=== PATIENT | female | born 1960 | race Caucasian/White ===

== ENCOUNTER → 2017-05-01 | Outpatient (CLI) | payer MEDICAID ==
[~2017-05-01] MED LIST: CIPRO 500MG TA500 MG PO; LEVOTHYROXINE0.05 MG PO; PHENERGAN25 M3 PO; PROPRANOLOL HCL20 MG PO; PYRIDIUM 200MG200 MG PO
[2017-05-01 10:17] LABS: BUN 16 mg/dL (7-18)
[2017-05-01 10:19] LABS: GFR (ESTIMATED) 74 ML/MIN (59-)
[2017-05-02 09:42] LABS: Iron 79 ug/dL (27-159); Iron Saturation 28 % (15-55); UIBC 202 ug/dL (131-425)
== END ==
LOC: LAB 08:39
PROVIDERS: Physician Assistant
DX: E03.9 Hypothyroidism, unspecified (principal); I10 Essential (primary) hypertension; E61.1 Iron deficiency; E78.2 Mixed hyperlipidemia

== ENCOUNTER → 2017-05-09 | Outpatient (CLI) | payer MEDICAID | LOC: LAB 11:42 | DX: N39.0 Urinary tract infection, site not specified (principal) ==

== ENCOUNTER → 2017-05-11 | Outpatient (CLI) | payer MEDICAID ==
--- NOTE | 2017-05-11 20:40 | RADIOLOGY REPORT PS360 ---
US RUQ-(ABD LTD)1ORGAN/QUAD/FU HISTORY: ABD PAINabdominal pain nausea vomiting 3 weeks Patient Age: 57 years: Female Ordering Physician: Mick Villa MD TECHNIQUE: Ultrasound right upper quadrant COMPARISON :CT abdomen pelvis January 2014 FINDINGS Pancreas unremarkable. Liver. No focal lesions. Normal portal vein flow pattern. Right kidney. Suggestion of perhaps trace diffuse cortical thinning. No hydronephrosis or mass. 10.25 centimeter in length. Gallbladder. No gallstones evident. Common duct normal diameter less than 3 mm at hilum of liver. IMPRESSION: Gallbladder unremarkable. No gallstones. No remarkable sludge. Common duct normal. Liver pancreas unremarkable. Right kidney.. Normal size with suggestion trace diffuse cortical thinning.
== END ==
LOC: RAD 08:54
DX: R10.11 Right upper quadrant pain (principal)